=== PATIENT | female | born 1970 | race Caucasian/White ===

== ENCOUNTER 2017-07-22 08:21 | Emergency (ER) | payer SELFPAY ==
[~2017-07-22] VITALS: Ht 160 cm; Wt 100.0 kg
[2017-07-22] MEDS ORDERED: DOPamine INJ PREMIX 500 ML IV ONE (08:22)
[2017-07-22] MEDS ORDERED: LIDOCAINE HCL 2% 100 MG/5 ML SYRINGE IV PUSH ONE (08:22)
[2017-07-22] MEDS ORDERED: SODIUM BICARBONATE 8.4% INJ 50 MEQ/50 ML SYR IV ONE (08:22)
[2017-07-22] MEDS ORDERED: ATROPINE SULFATE 1 MG/10 ML SYRINGE IV ONE (08:22)
[2017-07-22] MEDS ORDERED: EPINEPHrine HCL (1:10,000) 1 MG/10 ML SYRINGE IV ONE ×3 (08:22)
[2017-07-22] MEDS ORDERED: CALCIUM CHLORIDE 10% SOLN 1 GRAM/10 ML SYR IV ONE (08:22)
[2017-07-22] MEDS ORDERED: LORazepam 2 MG/ML VIAL ONE (08:23)
[2017-07-22] MEDS ORDERED: SUCCINYLCHOLINE CHLORIDE 200 MG/10 ML VIAL ONE (08:30)
[2017-07-22] MEDS ORDERED: ETOMIDATE 40 MG/20 ML VIAL ONE (08:30)
--- NOTE | 2017-07-22 09:38 | PD ---
HPI Chief Complaint: Chest Pain Time Seen by Provider: 09:30 Travel History International Travel<30 days: No Contact w/Intl Traveler<30days: No Traveled to known affect area: No History of Present Illness HPI 46-year-old female came to the emergency room with history of chest pain. Paramedics brought her in and the history was mostly given by them. Patient woke up this morning with severe substernal chest pain. When EMS arrived patient had 8 out of 10 substernal chest pain with no radiation. 12-lead EKG was within normal limit. Patient was given 2 baby aspirin and 1 nitroglycerin which made the pain go down to 6 out of 10. Patient was awake and talking until they brought the stretcher into the emergency room after which she suddenly started to go into a seizure. Patient was unresponsive as she was emergently brought into the room. The seizure lasted for a minute. It was generalized tonic-clonic seizure. No history of seizure disorder. Patient just has history of hypercholesterolemia. Patient is from [facility] and was here [place] the [place] with her and family. Patient was sonorous respiration followed by agonal respiration. I quickly decided to intubate her at this point. [facility], [facility] Past Medical History Narrative Medical List of her past medical, surgical, social and family history was reviewed from the nursing note. Medical History: Unable to Obtain High Cholesterol: Yes Diminished Hearing: No Tetanus Vaccination: Unknown Influenza Vaccination: No ?: Unknown Past Surgical History Surgical History: Unable to Obtain Social History Alcohol Use: No Tobacco Use: No Substance Use: No (UNKNOWN ) Allergies-Medications Comments Unknown Narrative Medication Unknown Review of Systems Except as stated in HPI: all other systems reviewed are Neg Physical Exam Narrative GENERAL: Unresponsive, obese, in extremis SKIN: Focused skin assessment warm/dry. Pale and mottled HEAD: Atraumatic. Normocephalic. EYES: Pupils equal and round. No scleral icterus. No injection or drainage. ENT: No nasal bleeding or discharge. Mucous membranes pink and moist. NECK: Trachea midline. No JVD. CARDIOVASCULAR: Regular rate and rhythm. No murmur appreciated. RESPIRATORY: Agonal respiration GASTROINTESTINAL: Abdomen soft, non-tender, nondistended. Hepatic and splenic margins not palpable. MUSCULOSKELETAL: No obvious deformities. No clubbing. No cyanosis. No edema. NEUROLOGICAL: GCS of 3 PSYCHIATRIC: Unable to assess Data Data Last Documented VS Vital Signs Date Time Temp Pulse Resp B/P (MAP) Pulse Ox O2 Delivery O2 Flow Rate FiO2 07/22/17 08:31 15.00 100 Orders Orders Lorazepam Inj (Ativan Inj) (07/22/17 08:23) Etomidate Inj (Amidate Inj) (07/22/17 08:30) Succinylcholine Inj (Quelicin Inj) (07/22/17 08:30) Epinephrine (1:10,000) Inj (Epinephrine (07/22/17:22) Epinephrine (1:10,000) Inj (Epinephrine (07/22/17:22) Calcium Chloride Inj (Calcium Chloride I (07/22/17:) Epinephrine (1:10,000) Inj (Epinephrine (07/22/17:) Lidocaine 2% Inj (Xylocaine 2% Inj) (07/22/17:) Sodium Bicarbonate 8.4% Inj (Sodium Bica (07/22/17:) Atropine Inj (Atropine Inj) (07/22/17:) Dopamine Inj Premix (Dopamine Inj Premix (07/22/17:22) MDM Medical Decision Making Medical Screen Exam Complete: Yes Emergency Medical Condition: Yes Medical Record Reviewed: Yes Differential Diagnosis Massive MT, massive PE, sudden cardiac Narrative Course 9:30 AM high-quality CPR was performed once patient was intubated by me. Please refer to my procedure note for the intubation. CPR was continued for 45 minutes. The ET tube was putting out blood which was being suctioned intermittently by the respiratory therapist. OG tube was introduced which was putting out coffee ground liquid. None of these secretions were copious in amount. One of the thought process was a massive PE and based on that patient was given TPA. Besides that multiple medications during the code was given as per ACLS protocol. Please refer to the code sheet for the name of the drugs and their timing. Patient continued to be in V. the entire 45 minutes and was delivered multiple unsynchronized shocks. She did not gain ROSC at any point. I spoke with her in between the code to update him about the condition as well as at the end of the code once the patient was about to be pronounced. Just before patient was about to be pronounced I checked her pupils and they were fixed and dilated. The condition had become at this point medically futile and I decided to stop the code. Patient was pronounced at 9:16 AM by me. As per the patient has been in a relatively good health. She recently had a health checkup done by her primary care and everything was fine. He was snoring more than her usual last night but otherwise no complains till this morning when she woke up with the chest pain. In my opinion patient should go through autopsy to determine the cause of . appeals examiner will be contacted by the nurse. Critical Care Narrative Aggregate critical care time was 45 minutes. Time to perform other separately billable procedures was not included in the critical care time. My time did not include minutes spent treating any other patients simultaneously or on activities that did not directly contribute to the patient's treatment. The services I provided to this patient were to treat and/or prevent clinically significant deterioration that could result in: Cardiac arrest, CPR I provided critical care services requiring my management, as noted below: Chart data review, documentation time, medication orders and management, vital sign assessments/reviewing monitor data, ordering and reviewing lab tests, ordering and interpreting/reviewing x-rays and diagnostic studies, care of the patient and discussion of the patient with the admitting physicians. Procedures Procedure Narrative After the risks and benefits were discussed the following procedure was performed: INTUBATION: The patient was put in optimal position for the procedure. Rapid sequence intubation was initiated by me using 20 milligrams of etomidate IV and 200 milligrams of succinylcholine IV. The patient was intubated with a 7.5 cuffed endotracheal tube. Tube placement was confirmed by visualization of the tube and balloon passing through the cords, capnometry and subsequent chest x-ray. Breath sounds were equal and well aerated bilaterally postintubation. No breath sounds over stomach. Patient tolerated procedure well. I/O line: I will line was inserted by me on left tibia after feeling the landmarks. Patient was being coded at this point. Line was confirmed by aspirating and fluids being pushed easily. Emergency department cardiac ultrasound was performed with patient consent. Small curvilinear probe was used in the epigastric, parasternal long/short access, four-chamber apical revealing no evidence of pericardial effusion. The heart looked like was going through fibrillation. EKG Prior to Arrival: Yes Diagnosis Primary Impression: Cardiorespiratory arrest Additional Impression: Sudden cardiac Disposition: 20 SENT TO MED EXAMINR Condition: Madhav France MD Jul 22, 2017 09:38
== END 2017-07-22 20:52 | disposition expired ==
LOC: NEPE 08:21
DX: I46.9 Cardiac arrest, cause unspecified (principal)
CPT/HCPCS: 31500; 36680; 43753; 92950; 99291; J0171; J0330; J0461; J1265; J2060